=== PATIENT | male | born 1965 | race Caucasian/White ===

== ENCOUNTER 2020-03-24 10:57 | Emergency (ER) | payer SELFPAY ==
[2020-03-24] MEDS ORDERED: Piperacillin/Tazobactam 4.5 GM in Sodium Chloride 0.9% 100 ML IV ONE (11:31)
[2020-03-24] MEDS ORDERED: fentaNYL 100 MCG/2 ML SDV IVPUSH ONE (11:41)
[2020-03-24] MEDS ORDERED: Ondansetron 4 MG/2 ML SDV IVPUSH ONE (11:41)
--- NOTE | 2020-03-24 11:42 | EDM.PDOC ---
ED HPI GENERAL MEDICAL PROBLEM - General Chief Complaint: Abdominal Pain Stated Complaint: MEDICAL VIA [facility] Time Seen by Provider: 03/24/20 11:26 Source of Information: Reports: Patient, RN Notes Reviewed History Limitations: Reports: No Limitations - History of Present Illness INITIAL COMMENTS - FREE TEXT/NARRATIVE: 54-year-old gentleman presents emergency department a complaint of abdominal pain, he arrived by EMS services. He states his been ill for about 3 days with abdominal pain poor oral intake he also complains of being very thirsty no shortness of breath or chest pain he does have a past medical history of pancreatitis also remote history of alcohol use. He admits to consuming a large amount of aspirin daily for this ongoing abdominal pain he has not had any black tarry stools or bloody emesis Lower Abdomen Pain Score (Numeric/FACES): 10 - Related Data Allergies Allergy/AdvReac Type Severity Reaction Status Date / Time No Known Allergies Allergy Verified 03/24/20 11:18 Home Meds: Home Meds Aspirin [Adult Low Dose Aspirin EC] 81 mg PO DAILY 11/27/13 [History] Clopidogrel [Plavix] 75 mg PO DAILY 11/27/13 [History] Metoprolol Tartrate 25 mg PO DAILY 11/27/13 [History] Nitroglycerin [Nitrostat] 0.4 mg SL ASDIRECTED 11/27/13 [History] atorvaSTATin [Lipitor] 40 mg PO BEDTIME 11/27/13 [History] Past Medical History Cardiovascular History: Reports: Bypass, CAD, High Cholesterol, Hypertension, Stents Gastrointestinal History: Reports: Other (See Below) Other Gastrointestinal History: abdomenal surgery Musculoskeletal History: Reports: Fracture Other Musculoskeletal History: wrist Psychiatric History: Reports: Addiction, Anxiety Endocrine/Metabolic History: Reports: Other (See Below) Other Endocrine/Metabolic History: unknown - Past Surgical History Cardiovascular Surgical History: Reports: Coronary Artery Bypass Social & Family History - Tobacco Use Smoking Status *Q: Former Smoker ED ROS GENERAL - Review of Systems Review Of Systems: See Below Constitutional: Reports: Chills, Weakness. Denies: Fever HEENT: Reports: Other (Dry mouth) Respiratory: Reports: No Symptoms Cardiovascular: Reports: No Symptoms GI/Abdominal: Reports: Abdominal Pain, Constipation, Nausea. Denies: Vomiting : Reports: No Symptoms Musculoskeletal: Reports: No Symptoms ED EXAM, GI/ABD - Physical Exam Exam: See Below Exam Limited By: Altered Mental Status General Appearance: Alert, Moderate Distress Eyes: Bilateral: Normal Appearance Head: Atraumatic, Normocephalic Neck: Normal Inspection, Supple, Non-Tender, Full Range of Motion Respiratory/Chest: No Respiratory Distress, Lungs Clear, Normal Breath Sounds, No Accessory Muscle Use, Chest Non-Tender Cardiovascular: Regular Rate, Rhythm, No Murmur GI/Abdominal Exam: Soft, Distended, Tender (Left upper quadrant) Neurological: Alert, Confused Course - Vital Signs Last Recorded V/S: Last Vital Signs Temp 97 F 03/24/20 11:44 Pulse 83 03/24/20 13:00 Resp 16 03/24/20 11:44 BP 84/50 L 03/24/20 13:00 Pulse Ox 92 L 03/24/20 13:00 - Orders/Labs/Meds Orders: Active Orders 24 hr Category Date Time Status EKG Documentation Completion [RC] ASDIRECTED Care 03/24/20 12:46 Active Vital Signs [RC] Q1H Care 03/24/20 11:31 Active Chest 1V Frontal [CR] Stat Exams 03/24/20 11:31 Taken CULTURE BLOOD [BC] Urgent Lab 03/24/20 11:40 Received CULTURE BLOOD [BC] Urgent Lab 03/24/20 11:49 Received UA W/MICROSCOPIC [URIN] Urgent Lab 03/24/20 11:31 Ordered Iopamidol [Isovue-300 (61%)] Med 03/24/20 12:00 Active 150 ml IV . DIRECTED Lactated Ringers [Ringers, Lactated] 1,000 ml Med 03/24/20 11:45 Active IV ASDIRECTED Lactated Ringers [Ringers, Lactated] 1,000 ml Med 03/24/20 12:58 Active IV BOLUS Sodium Chloride 0.9% [Saline Flush] Med 03/24/20 11:51 Active 10 ml FLUSH ONETIME PRN Vancomycin 1 gm Med 03/24/20 12:48 Active Sodium Chloride 0.9% [Normal Saline] 250 ml IV ONETIME Blood Culture x2 Reflex Set [OM.PC] Urgent Oth 03/24/20 11:31 Ordered Severe Sepsis Onset Time [OM.PC] Stat Oth 03/24/20 11:31 Ordered EKG 12 Lead [EK] Stat Ther 03/24/20 12:46 Ordered Medication Orders Lactated Ringer's (Ringers, Lactated) 1,000 mls @ 999 mls/hr IV ASDIRECTED [facility] Last Admin: 03/24/20 11:15 Dose: 999 mls/hr Documented by: SULLY Vancomycin HCl 1 gm/ Sodium (Chloride) 250 mls @ 150 mls/hr IV ONETIME ONE Stop: 03/24/20 14:27 Lactated Ringer's (Ringers, Lactated) 1,000 mls @ 999 mls/hr IV BOLUS ONE Stop: 03/24/20 13:58 Iopamidol (Isovue-300 (61%)) 150 ml IV . DIRECTED [facility] Last Admin: 03/24/20 12:15 Dose: 150 ml Documented by: RAYSA Sodium Chloride (Saline Flush) 10 ml FLUSH ONETIME PRN PRN Reason: PER RADIOLOGY PROTOCOL Last Admin: 03/24/20 12:15 Dose: 10 ml Documented by: RAYSA Labs: Laboratory Tests 03/24/20 03/24/20 03/24/20 Range/Units 11:40 11:40 11:40 WBC 19.6 H (4.5-11.0) K/uL RBC 4.78 (4.30-5.90) M/uL Hgb 14.7 (12.0-15.0) g/dL Hct 42.4 (40.0-54.0) % MCV 89 (80-98) fL MCH 31 (27-31) pg MCHC 35 (32-36) % Plt Count 201 (150-400) K/uL Neut % (Auto) 86 H (36-66) % Lymph % (Auto) 9 L (24-44) % Bowie % (Auto) 5 (2-6) % Eos % (Auto) 0 L (2-4) % Baso % (Auto) 0 (0-1) % Sodium 133 L (140-148) mmol/L Potassium 5.4 H (3.6-5.2) mmol/L Chloride 95 L (100-108) mmol/L Carbon Dioxide 19 L (21-32) mmol/L Anion Gap 24.4 H (5.0-14.0) mmol/L BUN 85 H* D (7-18) mg/dL Creatinine 6.4 H* D (0.8-1.3) mg/dL Est Cr Clr Drug Dosing 11.18 mL/min Estimated GFR (MDRD) 9 L (>60) Glucose 126 H (74-106) mg/dL Lactic Acid 3.0 H (0.4-2.0) mmol/L Calcium 8.9 (8.5-10.1) mg/dL Total Bilirubin 1.2 H D (0.2-1.0) mg/dL AST 771 H D (15-37) U/L ALT 189 H (12-78) U/L Alkaline Phosphatase 56 (46-116) U/L Troponin I 2.709 H* (0.000-0.056) ng/mL C-Reactive Protein 21.36 H (0.0-0.3) mg/dL Total Protein 7.7 (6.4-8.2) g/dL Albumin 4.1 (3.4-5.0) g/dL Globulin 3.6 H (2.3-3.5) g/dL Albumin/Globulin Ratio 1.1 L (1.2-2.2) Lipase 69 L (73-393) U/L Procalcitonin ng/mL Salicylates (2.0-20.0) mg/dL Ethyl Alcohol mg/dL 03/24/20 03/24/20 03/24/20 Range/Units 11:40 12:41 12:41 WBC (4.5-11.0) K/uL RBC (4.30-5.90) M/uL Hgb (12.0-15.0) g/dL Hct (40.0-54.0) % MCV (80-98) fL MCH (27-31) pg MCHC (32-36) % Plt Count (150-400) K/uL Neut % (Auto) (36-66) % Lymph % (Auto) (24-44) % Bowie % (Auto) (2-6) % Eos % (Auto) (2-4) % Baso % (Auto) (0-1) % Sodium (140-148) mmol/L Potassium (3.6-5.2) mmol/L Chloride (100-108) mmol/L Carbon Dioxide (21-32) mmol/L Anion Gap (5.0-14.0) mmol/L BUN (7-18) mg/dL Creatinine (0.8-1.3) mg/dL Est Cr Clr Drug Dosing mL/min Estimated GFR (MDRD) (>60) Glucose (74-106) mg/dL Lactic Acid (0.4-2.0) mmol/L Calcium (8.5-10.1) mg/dL Total Bilirubin (0.2-1.0) mg/dL AST (15-37) U/L ALT (12-78) U/L Alkaline Phosphatase (46-116) U/L Troponin I (0.000-0.056) ng/mL C-Reactive Protein (0.0-0.3) mg/dL Total Protein (6.4-8.2) g/dL Albumin (3.4-5.0) g/dL Globulin (2.3-3.5) g/dL Albumin/Globulin Ratio (1.2-2.2) Lipase (73-393) U/L Procalcitonin 43.63 H* ng/mL Salicylates 4.8 (2.0-20.0) mg/dL Ethyl Alcohol < 3 mg/dL Meds: Medications Generic Name Dose Route Start Last Admin Trade Name Freq PRN Reason Stop Dose Admin Lactated Ringer's 1,000 mls @ 999 mls/hr 03/24/20 11:45 03/24/20 11:15 Ringers, Lactated IV 999 mls/hr ASDIRECTED CONRAD Administration Vancomycin HCl 1 gm/ Sodium 250 mls @ 150 mls/hr 03/24/20 12:48 Chloride IV 03/24/20 14:27 ONETIME ONE Lactated Ringer's 1,000 mls @ 999 mls/hr 03/24/20 12:58 Ringers, Lactated IV 03/24/20 13:58 BOLUS ONE Iopamidol 150 ml 03/24/20 12:00 03/24/20 12:15 Isovue-300 (61%) IV 150 ml . DIRECTED CONRAD Administration Sodium Chloride 10 ml 03/24/20 11:51 03/24/20 12:15 Saline Flush FLUSH 10 ml ONETIME PRN Administration PER RADIOLOGY PROTOCOL Discontinued Medications Generic Name Dose Route Start Last Admin Trade Name Freq PRN Reason Stop Dose Admin Fentanyl 100 mcg 03/24/20 11:41 03/24/20 12:41 Sublimaze IVPUSH 03/24/20 11:42 100 mcg ONETIME ONE Administration Piperacillin/Tazobactam/ 100 mls @ 100 mls/hr 03/24/20 12:00 03/24/20 12:26 Dextrose 4.5 gm/ Premix IV 03/24/20 12:59 100 mls/hr ONETIME ONE Administration Sodium Chloride 85 mls @ 3 mls/sec 03/24/20 11:51 03/24/20 12:14 Normal Saline IV 03/24/20 11:52 3 mls/sec ONETIME ONE Administration Ondansetron HCl 4 mg 03/24/20 11:41 03/24/20 12:38 Zofran IVPUSH 03/24/20 11:42 4 mg ONETIME ONE Administration Departure - Departure Time of Disposition: 13:13 Disposition: DC/Tfer to Acute Hospital 02 Condition: Poor Clinical Impression: Sepsis due to undetermined organism, with acute renal failure - Discharge Information Referrals: PCP,None [Primary Care Provider] - Forms: ED Department Discharge Critical Care Note - Critical Care Note Total Time (mins): 30 Sepsis Event Note (ED) - Focused Exam Vital Signs: Vital Signs Temp Pulse Resp BP Pulse Ox 03/24/20 13:00 83 84/50 L 92 L 03/24/20 12:28 79 97/64 95 03/24/20 11:44 97 F 82 16 103/59 L 93 L 03/24/20 11:43 97.0 F 77 20 98/63 96 03/24/20 11:17 97.0 F 77 20 98/63 96 - My Orders Last 24 Hours: My Active Orders 03/24/20 11:31 Vital Signs [RC] Q1H Chest 1V Frontal [CR] Stat UA W/MICROSCOPIC [URIN] Urgent Blood Culture x2 Reflex Set [OM.PC] Urgent Severe Sepsis Onset Time [OM.PC] Stat 03/24/20 11:40 CULTURE BLOOD [BC] Urgent 03/24/20 11:45 Lactated Ringers [Ringers, Lactated] 1,000 ml IV ASDIRECTED 03/24/20 11:49 CULTURE BLOOD [BC] Urgent 03/24/20 11:51 Sodium Chloride 0.9% [Saline Flush] 10 ml FLUSH ONETIME PRN 03/24/20 12:00 Iopamidol [Isovue-300 (61%)] 150 ml IV . DIRECTED 03/24/20 12:46 EKG Documentation Completion [RC] ASDIRECTED EKG 12 Lead [EK] Stat 03/24/20 12:48 Vancomycin 1 gm Sodium Chloride 0.9% [Normal Saline] 250 ml IV ONETIME 03/24/20 12:58 Lactated Ringers [Ringers, Lactated] 1,000 ml IV BOLUS - Assessment/Plan Last 24 Hours: My Active Orders 03/24/20 11:31 Vital Signs [RC] Q1H Chest 1V Frontal [CR] Stat UA W/MICROSCOPIC [URIN] Urgent Blood Culture x2 Reflex Set [OM.PC] Urgent Severe Sepsis Onset Time [OM.PC] Stat 03/24/20 11:40 CULTURE BLOOD [BC] Urgent 03/24/20 11:45 Lactated Ringers [Ringers, Lactated] 1,000 ml IV ASDIRECTED 03/24/20 11:49 CULTURE BLOOD [BC] Urgent 03/24/20 11:51 Sodium Chloride 0.9% [Saline Flush] 10 ml FLUSH ONETIME PRN 03/24/20 12:00 Iopamidol [Isovue-300 (61%)] 150 ml IV . DIRECTED 03/24/20 12:46 EKG Documentation Completion [RC] ASDIRECTED EKG 12 Lead [EK] Stat 03/24/20 12:48 Vancomycin 1 gm Sodium Chloride 0.9% [Normal Saline] 250 ml IV ONETIME 03/24/20 12:58 Lactated Ringers [Ringers, Lactated] 1,000 ml IV BOLUS Plan: Assessment Acuity = acute Site and laterality = sepsis with acute renal failure complicated the patient with known history of coronary artery disease and hypertension Etiology = unknown source Manifestations = hypotension Location of injury = Home Lab values = WBC elevated 19.6 consistent leukocytosis, sodium low at 133 consistent hyponatremia potassium elevated 5.4 consistent hyperkalemia creatinine elevated 6.4 consistent with acute renal failure stage G5 lactic acid elevated 3.0 consistent lactic acidosis total bilirubin elevated 1.2 consistent hyperbilirubinemia AST elevated 771 ALT elevated 189 consistent with elevated liver enzymes troponin elevated at 2.71 of uncertain significance with markedly elevated creatinine CRP elevated at 21 consistent with inflammatory process lipase is low at 69 procalcitonin markedly elevated 43.6 chest x-ray shows no acute process CT scan after discussion with the radiologist shows gastroenteritis type pattern EKG demonstrates a sinus rhythm there is ST depressions in V, V4, V5 T wave inversions, V3, V4, V5, V6 no old EKG is kiarra ilable, salicylate pending, urinalysis unavailable as bladder only has 40 cc of urine, blood cultures are pending EtOH pending drug screen pending Plan Called and discussed case with Dr. Tavares emergency room physician at [facility] at 105 he kindly accepted the patient in transport will be transported via EMS ground thus far he is on his second liter of fluids has received 1 dose of Zosyn 1 dose of vancomycin, will be transported via EMS ground This note was dictated using [employer] voice recognition software please call with any questions on syntax or grammar.
[2020-03-24] MEDS ORDERED: Lactated Ringers 1,000 ML IV SCH (11:45)
[2020-03-24] MEDS ORDERED: Sodium Chloride 0.9% 10 ML Syringe FLUSH PRN (11:51)
[2020-03-24] MEDS ORDERED: Piperacillin/Tazobactam/Dext 4.5 GM in Premix Bag 1 BAG IV ONE (12:00)
[2020-03-24] MEDS ORDERED: Iopamidol 612 MG/ML 150 ML Bottle IV SCH (12:00)
[2020-03-24] MEDS ORDERED: Lactated Ringers 1,000 ML IV ONE ×2 (12:58→14:31)
--- NOTE | 2020-03-24 13:00 | CT ---
Abdomen Pelvis w Cont CLINICAL HISTORY: Left upper quadrant pain COMPARISON: None. TECHNIQUE: Axial tomographic images are obtained from the dome of the diaphragm to the pubic symphysis without IV contrast enhancement. No oral contrast was used. Auto dosage reduction and iterative reconstruction techniques employed. FINDINGS: There is some breathing motion. The lung bases are clear. The liver shows no mass or biliary dilatation. The gallbladder has a normal appearance. The spleen is absent. The stomach is mildly distended and fluid-filled. There are also some mildly distended fluid-filled small bowel loops may be some minimal mucosal enhancement there is a thick walled spheroidal calcification in the left midabdomen. There is linear calcification extending up to the left upper quadrant just lateral and posterior to the left kidney. There is a similar horizontal linear calcification along the tail of the pancreas. This could all be related to previous trauma or surgery possibly calcified hematomas. The pancreas head and body have a normal appearance. The adrenal glands within normal limits. The kidneys show moderately dense bilaterally heterogeneous enhancement throughout the parenchyma. There are a few punctate calcifications in the left renal pelvis which is likely vascular. The aorta has a normal course and contour. There is no suspicious retroperitoneal adenopathy. The appendix has a normal contour. There may be some mild mucosal thickening involving the descending colon. IMPRESSION: Gastric and small bowel distention. There is some enhancement of both the gastric wall and small bowel which is suggestive of gastroenteritis Relatively dense inhomogeneous opacification of both kidneys. This could be related to vascular phase. This should be correlated with renal function Large spheroid type calcification in the left mid abdomen with curvilinear coarse calcification ascending to the region of the retroperitoneum and pancreatic tail. 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 These calcifications may be related to previous trauma or surgery and old hematoma.
--- NOTE | 2020-03-24 13:19 | CR ---
CHEST: Portable 03/24/2020 at 12:04 PM CLINICAL HISTORY:Confusion COMPARISON:2013 FINDINGS: Patient has had previous sternotomy. The heart size, pulmonary vascularity and hilar structures are normal. No infiltrate effusion or pneumothorax is seen. IMPRESSION: No acute cardiopulmonary process. No acute cardio pulmonary process
[2020-03-24] MEDS ORDERED: Norepinephrine 4 MG in Dextrose 5% in Water 246 ML IV SCH ×2 (14:30)
== END 2020-03-24 15:13 ==
LOC: JP.ED 10:57
DX: A41.9 Sepsis, unspecified organism (principal); R65.20 Severe sepsis without septic shock; N17.9 Acute kidney failure, unspecified; I25.10 Atherosclerotic heart disease of native coronary artery without angina pectoris; E78.00 Pure hypercholesterolemia, unspecified; I10 Essential (primary) hypertension; Z95.5 Presence of coronary angioplasty implant and graft; Z87.891 Personal history of nicotine dependence; Z79.82 Long term (current) use of aspirin; Z79.02 Long term (current) use of antithrombotics/antiplatelets; Z79.899 Other long term (current) drug therapy
CPT/HCPCS: 36415; 71045; 74177; 80053; 80307; 83605; 83690; 84145; 84484; 85025; 86140; 87040; 87077; 93005; 96365; 96366; 96367; 96375; 99291; J2405; J2543; J3010; J3370; J7050; J7060; J7120; Q9967

== ENCOUNTER 2020-08-27 12:03 | Emergency (ER) | payer MEDICAID ==
[2020-08-27] MEDS ORDERED: Sodium Chloride 0.9% 10 ML Syringe FLUSH PRN (12:29)
--- NOTE | 2020-08-27 12:35 | EDM.PDOC ---
ED HPI GENERAL MEDICAL PROBLEM - General Chief Complaint: Abdominal Pain Stated Complaint: MEDICAL VIA [facility] Time Seen by Provider: 08/27/20 12:20 Source of Information: Reports: Patient, Old Records, RN History Limitations: Reports: No Limitations - History of Present Illness INITIAL COMMENTS - FREE TEXT/NARRATIVE: 54 yo male from [place] presents with abdominal pain, distention, and decreased stooling/gas. This morning also had a couple episodes of nausea and vomiting. Recently had an ostomy reversal in [place] and is seeing Dr. Briggs tomorrow for staple removal. Was having diarrhea since the ostomy reversal until yesterday. No fever. Onset: Gradual Onset Date: 08/26/20 Duration: Day(s):, Getting Worse Location: Reports: Abdomen Quality: Reports: Pressure Severity: Moderate Improves with: Reports: None Worsens with: Reports: Other (time) Context: Reports: Other (See HPI) Associated Symptoms: Reports: Nausea/Vomiting. Denies: Fever/Chills Treatments [employer]: Reports: Other (see below) (none) - Related Data Allergies Allergy/AdvReac Type Severity Reaction Status Date / Time No Known Allergies Allergy Verified 08/27/20 12:13 Home Meds: Home Meds Aspirin [Adult Low Dose Aspirin EC] 81 mg PO DAILY 11/27/13 [History] Clopidogrel [Plavix] 75 mg PO DAILY 11/27/13 [History] Furosemide [Lasix] 40 mg PO DAILY 07/17/20 [History] Magnesium Chloride [Mag-64] 128 mg PO BID 07/17/20 [History] Metoprolol Succinate [Toprol XL 50mg] 50 mg PO DAILY 07/17/20 [History] lisinopriL [Lisinopril] 2.5 mg PO DAILY 07/17/20 [History] Acetaminophen [Acetaminophen Extra Strength] 1,000 mg PO Q6HR PRN 08/07/20 [History] Metoclopramide HCl [Reglan] 10 mg PO QID PRN #10 tablet 08/27/20 [Rx] Past Medical History Cardiovascular History: Reports: Bypass, CAD, High Cholesterol, Hypertension, Stents Gastrointestinal History: Reports: Other (See Below) Other Gastrointestinal History: abdomenal surgery Musculoskeletal History: Reports: Fracture Other Musculoskeletal History: wrist Psychiatric History: Reports: Addiction, Anxiety Endocrine/Metabolic History: Reports: Other (See Below) Other Endocrine/Metabolic History: unknown - Past Surgical History Cardiovascular Surgical History: Reports: Coronary Artery Bypass Social & Family History - Tobacco Use Tobacco Use Status *Q: Never Tobacco User - Caffeine Use Caffeine Use: Reports: Coffee, Energy Drinks ED ROS GENERAL - Review of Systems Review Of Systems: See Below Constitutional: Reports: No Symptoms HEENT: Reports: No Symptoms Respiratory: Reports: No Symptoms Cardiovascular: Reports: No Symptoms GI/Abdominal: Reports: Abdominal Pain, Diarrhea (until 2 d ago), Distension, Flatus (minimal, less than normal), Nausea, Vomiting. Denies: Black Stool, Bloody Stool, Constipation, Hematemesis, Hematochezia : Reports: No Symptoms, Other (urine is dark) Musculoskeletal: Reports: No Symptoms Skin: Reports: No Symptoms Neurological: Reports: No Symptoms ED EXAM, GI/ABD - Physical Exam Exam: See Below Exam Limited By: No Limitations General Appearance: Alert, WD/WN, No Apparent Distress Eyes: Bilateral: Normal Appearance Ears: Normal External Exam, Normal Canal, Hearing Grossly Normal Nose: Normal Inspection, No Blood Throat/Mouth: Normal Inspection, Normal Lips, Normal Oropharynx, Normal Voice, No Airway Compromise Head: Atraumatic, Normocephalic Neck: Normal Inspection Respiratory/Chest: No Respiratory Distress, Lungs Clear, Normal Breath Sounds, No Accessory Muscle Use Cardiovascular: Regular Rate, Rhythm, No Edema GI/Abdominal Exam: Distended, Tender (diffuse), Abnormal Bowel Sounds (increased). No: Non-Tender, No Distention, Guarding, Rigid, Rebound Back Exam: Normal Inspection. No: CVA Tenderness (R), CVA Tenderness (L) Extremities: Normal Inspection, Normal Range of Motion, Non-Tender, No Pedal Edema Neurological: Alert, Oriented, CN II-XII Intact, Normal Cognition, No Motor/Sensory Deficits Psychiatric: Normal Affect, Normal Mood Skin Exam: Warm, Dry, Intact, Normal Color, No Rash Course - Vital Signs Last Recorded V/S: Last Vital Signs Temp 36.3 C 08/27/20 12:20 Pulse 90 08/27/20 12:20 Resp 14 08/27/20 12:20 BP 98/66 08/27/20 12:20 Pulse Ox 96 08/27/20 12:20 - Orders/Labs/Meds Orders: Active Orders 24 hr Category Date Time Status Abdomen 2V AP Flat Upright [CR] Stat Exams 08/27/20 12:24 Taken Acetaminophen [Tylenol Extra Strength] Med 08/27/20 14:35 Once 1,000 mg PO ONETIME ONE Sodium Chloride 0.9% [Saline Flush] Med 08/27/20 12:29 Active 10 ml FLUSH ASDIRECTED PRN Saline Lock Insert [OM.PC] Routine Oth 08/27/20 12:29 Ordered Medication Orders Acetaminophen (Tylenol Extra Strength) 1,000 mg PO ONETIME ONE Stop: 08/27/20 14:36 Sodium Chloride (Saline Flush) 10 ml FLUSH ASDIRECTED PRN PRN Reason: Keep Vein Open Labs: Laboratory Tests 08/27/20 08/27/20 08/27/20 Range/Units 12:40 12:40 12:47 WBC 15.1 H (4.5-11.0) K/uL RBC 4.38 (4.30-5.90) M/uL Hgb 12.5 D (12.0-15.0) g/dL Hct 39.1 L (40.0-54.0) % MCV 89 (80-98) fL MCH 29 (27-31) pg MCHC 32 (32-36) % Plt Count 500 H (150-400) K/uL Sodium 138 L (140-148) mmol/L Potassium 3.7 (3.6-5.2) mmol/L Chloride 101 (100-108) mmol/L Carbon Dioxide 22 (21-32) mmol/L Anion Gap 18.7 H (5.0-14.0) mmol/L BUN 9 D (7-18) mg/dL Creatinine 1.1 D (0.8-1.3) mg/dL Est Cr Clr Drug Dosing 65.03 mL/min Estimated GFR (MDRD) > 60 (>60) Glucose 147 H (74-106) mg/dL Calcium 9.1 (8.5-10.1) mg/dL C-Reactive Protein 1.56 H (0.0-0.3) mg/dL Meds: Medications Generic Name Dose Route Start Last Admin Trade Name Freq PRN Reason Stop Dose Admin Acetaminophen 1,000 mg 08/27/20 14:35 Tylenol Extra Strength PO 08/27/20 14:36 ONETIME ONE Sodium Chloride 10 ml 08/27/20 12:29 Saline Flush FLUSH ASDIRECTED PRN Keep Vein Open Discontinued Medications Generic Name Dose Route Start Last Admin Trade Name Brian PRN Reason Stop Dose Admin Lactated Ringer's 1,000 mls @ 1,000 mls/hr 08/27/20 13:09 08/27/20 13:36 Ringers, Lactated IV 08/27/20 14:08 1,000 mls/hr BOLUS ONE Administration Metoclopramide HCl 10 mg 08/27/20 13:11 08/27/20 13:37 Reglan IVPUSH 08/27/20 13:12 10 mg ONETIME ONE Administration Simethicone 160 mg 08/27/20 13:09 08/27/20 13:38 Simethicone PO 08/27/20 13:10 160 mg ONETIME ONE Administration - Radiology Interpretation Free Text/Narrative:: Flat/upright abdominal X-ray-air/fluid levels from an ileus. Departure - Departure Time of Disposition: 14:45 Disposition: Home, Self-Care 01 Condition: Fair Clinical Impression: Adynamic ileus - Discharge Information *PRESCRIPTION DRUG MONITORING PROGRAM REVIEWED*: Not Applicable *COPY OF PRESCRIPTION DRUG MONITORING REPORT IN PATIENT QUOC: Not Applicable Referrals: PCP,None [Primary Care Provider] - Forms: ED Department Discharge Additional Instructions: Use acetaminophen as needed for pain relief. Use metoclopramide as needed for nausea control. Take in sips of a sport drink of your choice for hydration and avoid solid foods until rechecked by Dr. Briggs. You may chew on simethicone tablets to see if this gives you any added relief, follow package directions. Sepsis Event Note (ED) - Evaluation Sepsis Screening Result: No Definite Risk - Focused Exam Vital Signs: Vital Signs Temp Pulse Resp BP Pulse Ox 08/27/20 12:20 36.3 C 90 14 98/66 96 - My Orders Last 24 Hours: My Active Orders 08/27/20 12:24 Abdomen 2V AP Flat Upright [CR] Stat 08/27/20 12:29 Sodium Chloride 0.9% [Saline Flush] 10 ml FLUSH ASDIRECTED PRN Saline Lock Insert [OM.PC] Routine 08/27/20 14:35 Acetaminophen [Tylenol Extra Strength] 1,000 mg PO ONETIME ONE - Assessment/Plan Last 24 Hours: My Active Orders 08/27/20 12:24 Abdomen 2V AP Flat Upright [CR] Stat 08/27/20 12:29 Sodium Chloride 0.9% [Saline Flush] 10 ml FLUSH ASDIRECTED PRN Saline Lock Insert [OM.PC] Routine 08/27/20 14:35 Acetaminophen [Tylenol Extra Strength] 1,000 mg PO ONETIME ONE
[2020-08-27] MEDS ORDERED: Lactated Ringers 1,000 ML IV ONE (13:09)
[2020-08-27] MEDS ORDERED: Simethicone 80 MG Tab.Chew PO ONE (13:09)
[2020-08-27] MEDS ORDERED: Metoclopramide 10 MG/2 ML SDV IVPUSH ONE (13:11)
[2020-08-27] MEDS ORDERED: Acetaminophen 500 MG Tab PO ONE (14:35)
--- NOTE | 2020-08-28 09:20 | CR ---
Abdomen 2V AP Flat Upright CLINICAL HISTORY: Distention FINDINGS: There is small bowel distention with scattered air-fluid levels. There is also some gaseous distention of transverse colon. There is elongated the irregular calcification in the left abdomen which has been described on a CT from March. It is in the left retroperitoneum. There are surgical clips at the abdominal midline. There is a right lower quadrant bowel anastomosis. IMPRESSION: Recent abdominal surgery Gaseous distention of small bowel and colon is nonspecific but most likely represents ileus. If clinical symptomatology persists or worsens a repeat exam is recommended.
== END 2020-08-27 15:02 | disposition home or self-care (01) ==
LOC: JP.ED 12:03
DX: K56.0 Paralytic ileus (principal); I10 Essential (primary) hypertension; I25.10 Atherosclerotic heart disease of native coronary artery without angina pectoris; Z95.5 Presence of coronary angioplasty implant and graft; Z79.82 Long term (current) use of aspirin; Z79.02 Long term (current) use of antithrombotics/antiplatelets; Z79.899 Other long term (current) drug therapy
CPT/HCPCS: 36415; 74019; 80048; 85027; 86140; 96374; 99284; A9270; J2765; J7120

== ENCOUNTER 2021-03-30 06:22 | Day surgery (SDC) | payer MEDICAID ==
[2021-03-30] MEDS ORDERED: Sodium Chloride 0.9% 1,000 ML IV SCH (07:00)
[2021-03-30] MEDS ORDERED: Propofol 200 MG/20 ML SDV ONE (07:40)
[2021-03-30] MEDS ORDERED: fentaNYL 100 MCG/2 ML SDV ONE (07:40)
[2021-03-30] MEDS ORDERED: Midazolam 1 MG/ML 2 ML SDV ONE (07:41)
--- NOTE | 2021-03-30 11:26 | OR ---
DATE OF PROCEDURE: 03/30/2021 SURGEON: Mukesh Briggs MD PROCEDURE: Colonoscopy. FINDINGS: 1. Strictured narrowing at 40 cm (biopsied multiple times using cold biopsy forceps). 2. Sigmoid colon polyp, approximately 5 mm, completely removed using cold biopsy forceps. COMPLICATIONS: None. KILN TESTER: None. ANESTHESIA: MAC. PREOPERATIVE DIAGNOSIS: Screening colonoscopy. POSTOPERATIVE DIAGNOSIS: Screening colonoscopy. RISKS: Risks, benefits, alternatives, and limitations including, but not limited to infection, bleeding, perforation, false positives and false negatives were explained to the patient who wished to proceed. PROCEDURE IN DETAIL: The patient was placed in left lateral decubitus position. Digital rectal exam was performed without abnormality. The scope was introduced and advanced to approximately 4 cm from the anal verge. There was a 360-degree (circumferential) narrowing lesion at this location. This was biopsied a minimum of 6 times. The scope was barely able to be passed past this. The scope was then introduced and advanced completely to anastomosis, which was noted to have some retained cory. No abnormalities were noted in this area. The prep was marginal with approximately 90% of the luminal surface could be seen. In the sigmoid colon, there is a 5 mm polyp, completely removed using cold biopsy forceps. No abnormalities were noted on retroflexion. The patient tolerated the procedure well. Mukesh Briggs MD /[id number]
== END 2021-03-30 09:27 | disposition home or self-care (01) ==
LOC: JP.SDS 06:22
PROVIDERS: ATTEND Surgery
DX: Z12.11 Encounter for screening for malignant neoplasm of colon (principal); D12.5 Benign neoplasm of sigmoid colon; K56.699 Other intestinal obstruction unspecified as to partial versus complete obstruction; E11.9 Type 2 diabetes mellitus without complications; Z87.891 Personal history of nicotine dependence
CPT/HCPCS: 45380; J2250; J2704; J3010; J7030; 88305

== ENCOUNTER 2021-08-14 20:19 | Emergency (ER) | payer MEDICAID ==
--- NOTE | 2021-08-14 21:46 | EDM.PDOC ---
ED HPI GENERAL MEDICAL PROBLEM - General Chief Complaint: Skin Complaint Stated Complaint: SORE ON R HAND Time Seen by Provider: 08/14/21 21:25 Source of Information: Reports: Patient History Limitations: Reports: No Limitations - History of Present Illness INITIAL COMMENTS - FREE TEXT/NARRATIVE: Jacob is a 55-year-old male presenting to the ED with concerns of multiple lesions on both hands that have been ongoing for the last week or more. The lesions started out as pustular but then become ulcerative within a necrotic appearing center consistent with MRSA cellulitis. The patient reports he is having frequent diarrhea but is constantly washing his hands. Today the wound on the right wrist has a red line extending up the distribution of the radial vein. Patient denies any fever or chills. He has had chronic diarrhea but no nausea or vomiting. No cough or shortness of breath. Right Wrist Pain Score (Numeric/FACES): 2 - Related Data Allergies Allergy/AdvReac Type Severity Reaction Status Date / Time No Known Allergies Allergy Verified 03/30/21 06:46 Home Meds: Home Meds Aspirin [Adult Low Dose Aspirin EC] 81 mg PO DAILY 11/27/13 [History] Clopidogrel [Plavix] 75 mg PO DAILY 11/27/13 [History] Furosemide [Lasix] 40 mg PO DAILY 07/17/20 [History] Magnesium Chloride [Mag-64] 128 mg PO BID 07/17/20 [History] Metoprolol Succinate [Toprol XL 50mg] 50 mg PO DAILY 07/17/20 [History] lisinopriL [Lisinopril] 2.5 mg PO DAILY 07/17/20 [History] Acetaminophen [Acetaminophen Extra Strength] 1,000 mg PO Q6HR PRN 08/07/20 [History] Sertraline [Zoloft] 50 mg PO DAILY 03/26/21 [History] traZODone 50 mg PO BEDTIME 03/26/21 [History] Neomycin [Neomycin Sulfate] 500 mg PO DAILY 08/14/21 [History] Rifaximin [Xifaxan] 550 mg PO TID 08/14/21 [History] Past Medical History HEENT History: Reports: Other (See Below) Other HEENT History: wears reading glasses Cardiovascular History: Reports: Bypass, CAD, Heart Murmur, High Cholesterol, Hypertension, ME, Stents Gastrointestinal History: Reports: Chronic Diarrhea, Pancreatitis, Other (See Below) Other Gastrointestinal History: abdomenal surgery, ischemic bowel disease Musculoskeletal History: Reports: Fracture Other Musculoskeletal History: wrist Psychiatric History: Reports: Addiction, Anxiety, Depression Endocrine/Metabolic History: Reports: Other (See Below) Other Endocrine/Metabolic History: unknown Hematologic History: Reports: Anticoagulation Therapy - Infectious Disease History Infectious Disease History: Reports: Measles - Past Surgical History HEENT Surgical History: Reports: Tonsillectomy Cardiovascular Surgical History: Reports: Coronary Artery Bypass GI Surgical History: Reports: Colon, Colostomy, Other (See Below) Other GI Surgeries/Procedures: colostomy reversal, spleenectomy Social & Family History - Tobacco Use Tobacco Use Status *Q: Former Tobacco User Used Tobacco, but Quit: Yes Month/Year Tobacco Last Used: 2018 - Caffeine Use Caffeine Use: Reports: Coffee - Recreational Drug Use Recreational Drug Use: Yes Drug Use in Last 12 Months: No Recreational Drug Type: Reports: Marijuana/Hashish Recreational Drug Use Frequency: Not Used In Over 6 Months ED ROS GENERAL - Review of Systems Review Of Systems: See Below Constitutional: Reports: No Symptoms HEENT: Reports: No Symptoms Respiratory: Reports: No Symptoms Cardiovascular: Reports: No Symptoms Endocrine: Reports: No Symptoms GI/Abdominal: Reports: Diarrhea (Chronic) : Reports: No Symptoms Musculoskeletal: Reports: No Symptoms Skin: Reports: Erythema (Erythematous lesions with necrotic center consistent with MRSA cellulitis on both hands and right wrist. The largest lesion is about 2 cm in diameter with other lesions being less than 1 cm. They are in various stages of healing.) Neurological: Reports: No Symptoms Psychiatric: Reports: No Symptoms Hematologic/Lymphatic: Reports: No Symptoms Immunologic: Reports: No Symptoms ED EXAM, SKIN/RASH Exam: See Below Exam Limited By: No Limitations General Appearance: Alert, No Apparent Distress, Anxious Skin: Erythema (Multiple lesions on both hands with the largest being on the right wrist over the snuffbox measuring approximately 2 cm in diameter. There is a raised red rim with a necrotic center. The wound started out as a pustule but then became ulcerative. It is consistent with MRSA cellulitis.) Location, Skin: Upper Extremity, Right, Upper Extremity, Left Characteristics: Erythematous Associated features: Warmth, Tenderness, Induration, Inflammation, Weeping Course - Vital Signs Last Recorded V/S: Last Vital Signs Temp 36.7 C 08/14/21 20:46 Pulse 71 08/14/21 20:46 Resp 16 08/14/21 20:46 BP 124/82 08/14/21 20:46 Pulse Ox 97 08/14/21 20:46 - Orders/Labs/Meds Orders: Active Orders 24 hr Category Date Time Status CRP [C-REACTIVE PROTEIN] [CHEM] Stat Lab 08/14/21 22:06 Received CULTURE WOUND + SMEAR [RM] Stat Lab 08/14/21 21:39 Results Labs: Laboratory Tests 08/14/21 Range/Units 22:06 WBC 14.6 H (4.5-11.0) K/uL RBC 4.37 (4.30-5.90) M/uL Hgb 13.2 (12.0-15.0) g/dL Hct 39.6 L (40.0-54.0) % MCV 91 (80-98) fL MCH 30 (27-31) pg MCHC 33 (32-36) % Plt Count 297 (150-400) K/uL Neut % (Auto) 57.6 (36-66) % Lymph % (Auto) 33.0 (24-44) % Bland % (Auto) 7.8 H (2-6) % Eos % (Auto) 1.1 L (2-4) % Baso % (Auto) 0.5 (0-1) % - Re-Assessments/Exams Free Text/Narrative Re-Assessment/Exam: 08/14/21 22:37 I reviewed the patient's labs showing a 14.6 leukocyte count but normal differential. A wound culture was obtained and just shows leukocytes on the Gram stain but no evidence for organisms. Culture is pending. This looks to me like MRSA so we will start the patient on Bactrim 1 tablet twice daily for 10 days. Like him to follow-up with his primary care provider next week for recheck. Indications return to ED were discussed that he was discharged in satisfactory condition. Departure - Departure Time of Disposition: 22:38 Disposition: Home, Self-Care 01 Clinical Impression: Cellulitis due to MRSA - Discharge Information Instructions: MRSA Infection, Diagnosis, Adult Referrals: Esthela Cook MD [Primary Care Provider] - Forms: ED Department Discharge Care Plan Goals: Your wounds on both hands are consistent with MRSA cellulitis. We will start you on Bactrim double strength 1 tablet twice daily for the next 10 days. Please follow-up with your primary care provider next week for recheck of the wounds. If they appear to be continuing to get worse please return to the ED sooner for reevaluation. Sepsis Event Note (ED) - Evaluation Sepsis Screening Result: No Definite Risk - Focused Exam Vital Signs: Vital Signs Temp Pulse Resp BP Pulse Ox 08/14/21 20:46 36.7 C 71 16 124/82 97 - Problem List & Annotations (1) Cellulitis due to MRSA SNOMED Code(s): 338344194 Code(s): L03.90 - CELLULITIS, UNSPECIFIED; B95.62 - METHICILLIN RESIS STAPH INFCT CAUSING DISEASES CLASSD [id number] Status: Acute Priority: Low Current Visit: Yes - Problem List Review Problem List Initiated/Reviewed/Updated: Yes - My Orders Last 24 Hours: My Active Orders 08/14/21 21:39 CULTURE WOUND + SMEAR [RM] Stat 08/14/21 22:06 CRP [C-REACTIVE PROTEIN] [CHEM] Stat - Assessment/Plan Last 24 Hours: My Active Orders 08/14/21 21:39 CULTURE WOUND + SMEAR [RM] Stat 08/14/21 22:06 CRP [C-REACTIVE PROTEIN] [CHEM] Stat
== END 2021-08-14 22:48 | disposition home or self-care (01) ==
LOC: JP.ED 20:19
DX: L03.113 Cellulitis of right upper limb (principal); L03.114 Cellulitis of left upper limb; B95.62 Methicillin resistant Staphylococcus aureus infection as the cause of diseases classified elsewhere; I25.10 Atherosclerotic heart disease of native coronary artery without angina pectoris; E78.00 Pure hypercholesterolemia, unspecified; I10 Essential (primary) hypertension; I25.2 Old myocardial infarction; Z95.1 Presence of aortocoronary bypass graft; Z79.82 Long term (current) use of aspirin; Z79.02 Long term (current) use of antithrombotics/antiplatelets; Z79.899 Other long term (current) drug therapy; Z87.891 Personal history of nicotine dependence
CPT/HCPCS: 36415; 85025; 86140; 87070; 87077; 87205; 99283